=== PATIENT | female | born 1990 | race Two or more races ===

== ENCOUNTER 2018-03-23 11:23 | Emergency (ER) | payer MEDICAID ==
[~2018-03-23] VITALS: Ht 157.5 cm; Wt 127.0 kg
[2018-03-23 11:49] VITALS: BP 129/72
[2018-03-23] MEDS ORDERED: DEXAMETHASONE 4 MG TABLET ONE (12:09)
[2018-03-23] MEDS ORDERED: DEXAMETHASONE 4 MG TABLET PO ONE (13:00)
== END 2018-03-23 12:15 | disposition home or self-care (01) ==
LOC: ED 12:09
DX: J03.00 Acute streptococcal tonsillitis, unspecified (principal)
CPT/HCPCS: 99283

== ENCOUNTER 2018-04-30 08:19 | Emergency (ER) | payer MEDICAID ==
[~2018-04-30] VITALS: Ht 160 cm; Wt 125.0 kg
[2018-04-30 08:22] VITALS: BP 135/83
== END 2018-04-30 09:10 | disposition home or self-care (01) ==
LOC: ED 09:00
DX: L03.311 Cellulitis of abdominal wall (principal)
CPT/HCPCS: 99283

== ENCOUNTER 2019-08-19 19:53 | Emergency (ER) | payer MEDICAID ==
[~2019-08-19] VITALS: Ht 157.5 cm; Wt 123.4 kg
[2019-08-19 20:36] VITALS: BP 145/73
[2019-08-19 22:08] LABS: ALBUMIN 3.8 g/dL (3.4-5.0); ANION GAP 6 mmol/L (5-15); CALCIUM 8.7 mg/dL (8.5-10.1); CHLORIDE 108 mmol/L (98-107)
[2019-08-19 22:14] LABS: ALANINE AMINOTRANSFERASE 19 U/L (12-78); ALKALINE PHOSPHATASE 104 U/L (45-117); BILIRUBIN,TOTAL 0.3 mg/dL (0.2-1.0); CREATININE 0.75 mg/dL (0.55-1.02); TOTAL PROTEIN 7.7 g/dL (6.4-8.2)
[2019-08-19 22:26] LABS: BASOPHILS # (AUTO) 0.02 x10^3/uL (0-0.1); BASOPHILS % (AUTO) 0 % (0-1); EOSINOPHILS # (AUTO) 0.17 x10^3/uL (0-0.4); EOSINOPHILS % (AUTO) 1 % (1-7); LYMPHOCYTES # (AUTO) 1.49 x10^3/uL (1-3.4); LYMPHOCYTES % (AUTO) 13 % (22-44); MD SCAN; MEAN CORPUSCULAR HEMOGLOBIN 23.4 pg (27.0-34.8); MEAN CORPUSCULAR HGB CONC 32.3 g/dL (32.4-35.8); MEAN CORPUSCULAR VOLUME 72.4 fL (80-100); MEAN PLATELET VOLUME 11.5 fL (7.4-10.4); MONOCYTES # (AUTO) 0.75 x10^3/uL (0.2-0.8); MONOCYTES % (AUTO) 6 % (2-9); NEUTROPHILS # (AUTO) 9.27 x10^3/uL (1.8-6.8); NEUTROPHILS % (AUTO) 79 % (42-75); PLATELET COUNT 228 x10^3/uL (130-400); RED BLOOD COUNT 5.06 x10^6/uL (3.82-5.3); RED CELL DISTRIBUTION WIDTH 21.5 % (9.6-15.2)
--- NOTE | 2019-08-19 23:44 | NUR ---
pt to room from lobby - not in lobby
--- NOTE | 2019-08-20 00:03 | NUR ---
not in lobby
--- NOTE | 2019-08-20 00:24 | NUR ---
not in lobby
== END 2019-08-20 00:25 | disposition left against medical advice (07) ==
LOC: ED 08-20 00:19
DX: R10.2 Pelvic and perineal pain (principal)
CPT/HCPCS: 36415; 76830; 80053; 84702; 85025; 99284

== ENCOUNTER 2020-09-04 17:08 | Emergency (ER) | payer MEDICAID, OTHER ==
[~2020-09-04] VITALS: Ht 157.5 cm; Wt 121.6 kg
--- NOTE | 2020-09-04 18:37 | NUR ---
[employer]: PT TO ROOM FROM [facility]
[2020-09-04 21:27] LABS: BASOPHILS % (AUTO) 0 % (0-1); EOSINOPHILS % (AUTO) 1 % (1-7); LYMPHOCYTES % (AUTO) 12 % (22-44); MEAN CORPUSCULAR HGB CONC 32.6 g/dL (32.4-35.8); MEAN PLATELET VOLUME 10.4 fL (7.4-10.4); MONOCYTES % (AUTO) 6 % (2-9); NEUTROPHILS % (AUTO) 80 % (42-75); PLATELET COUNT 167 x10^3/uL (130-400); RED BLOOD COUNT 5.08 x10^6/uL (3.82-5.3); RED CELL DISTRIBUTION WIDTH 16.1 % (9.6-15.2)
[2020-09-04 21:30] LABS: MD NO
[2020-09-04 21:35] LABS: ALANINE AMINOTRANSFERASE 14 U/L (12-78); ALBUMIN 3.2 g/dL (3.4-5.0); ANION GAP 6 mmol/L (5-15); CALCIUM 8.9 mg/dL (8.5-10.1); CHLORIDE 106 mmol/L (98-107); CREATININE 0.58 mg/dL (0.55-1.02)
[2020-09-04 21:35] LABS: MICROSCOPIC INDICATED
--- NOTE | 2020-09-04 21:49 | NUR ---
pt back from imaging, transfered to pelvic bed for exam. rn and pa in room for pelic, pt tolerated procedure well, returned position of comfort. specimens collected and sent to lab, pt in bed with no signs or symptoms of acute distrss noted respirations even and unlabored. at bedside to assess.
[2020-09-04 21:51] LABS: ALKALINE PHOSPHATASE 83 U/L (45-117); BILIRUBIN,TOTAL 0.3 mg/dL (0.2-1.0); TOTAL PROTEIN 7.3 g/dL (6.4-8.2)
[2020-09-04] MEDS ORDERED: ACETAMINOPHEN 325 MG TABLET ONE (21:57)
[2020-09-04] MEDS ORDERED: ACETAMINOPHEN 325 MG TABLET PO ONE (22:00)
[2020-09-04 22:01] VITALS: BP 112/70
[2020-09-04 22:10] LABS: CLUE CELLS NONE SEEN (NONE SEEN); WET PREP WBCS FEW (FEW)
--- NOTE | 2020-09-04 22:31 | NUR ---
pt in bed with no signs or symptoms of acute distress noted provider at bedside to rafa white, pt verbalizes understanding and agreement with plan of care.
== END 2020-09-04 22:33 | disposition home or self-care (01) ==
LOC: ED 21:44
DX: O26.891 Other specified pregnancy related conditions, first trimester (principal); R10.2 Pelvic and perineal pain; Z3A.11 11 weeks gestation of pregnancy
CPT/HCPCS: 36415; 76801; 80053; 81001; 84112; 84702; 85025; 87210; 87808; 99284